=== PATIENT | female | born 1995 | race Caucasian/White ===

== ENCOUNTER 2020-01-07 20:50 | Emergency (ER) | payer OTHER ==
[~2020-01-07] VITALS: Ht 167.6 cm; Wt 56.7 kg
[2020-01-07 20:53] VITALS: BP 136/92
[2020-01-07 21:53] LABS: ABSOLUTE NEUTROPHILS 11.2 thou/uL (1.4-8.2); BASOPHILS 0.4 % (0.0-2.0); EOSINOPHILS 0.2 % (0.0-3.0); HEMATOCRIT 38.2 % (37.0-47.0); LYMPHOCYTES 14.8 % (24.0-44.0); MCH 29.4 pg (26.0-34.0); MCV 86.6 fL (80.0-100.0); MONOCYTES 5.8 % (1.0-8.0); PLATELET COUNT 434 thou/uL (150-400); POLYS 78.8 % (36.0-66.0); RBC 4.41 mil/uL (4.20-5.00); RDW 13.3 % (10.5-14.5); WBC 14.3 thou/uL (4.0-11.0)
[2020-01-07] MEDS ORDERED: CLEOCIN HCL150 MG PO (21:57)
[2020-01-07 22:05] LABS: ALBUMIN 3.4 g/dL (3.4-5.0); CALCIUM 9.3 mg/dL (8.5-10.1); CREATININE 0.7 mg/dL (0.6-1.0); TOTAL BILIRUBIN 0.9 mg/dL (<0.1-1.0); TOTAL PROTEIN 8.6 g/dL (6.4-8.2)
[2020-01-07 22:09] LABS: POTASSIUM 2.3 mmol/L (3.5-5.1)
== END 2020-01-07 21:58 | disposition left against medical advice (07) ==
LOC: ER 20:50
PROVIDERS: Physician Assistant
DX: L03.113 Cellulitis of right upper limb (principal); M65.841 Other synovitis and tenosynovitis, right hand; F15.10 Other stimulant abuse, uncomplicated; E87.6 Hypokalemia; R05 Cough; F17.210 Nicotine dependence, cigarettes, uncomplicated; Z98.890 Other specified postprocedural states; Z53.29 Procedure and treatment not carried out because of patient's decision for other reasons

== ENCOUNTER 2020-01-07 23:21 | Emergency (ER) | payer OTHER ==
[~2020-01-07 23:21] MED LIST: CLEOCIN HCL150 MG PO
[2020-01-07 23:36] VITALS: BP 124/87
== END 2020-01-08 00:02 | disposition left against medical advice (07) ==
LOC: ER 23:21
DX: L03.113 Cellulitis of right upper limb (principal); F17.210 Nicotine dependence, cigarettes, uncomplicated